=== PATIENT | female | born 1935 | race Caucasian/White ===

== ENCOUNTER 2019-04-24 | Emergency (ER) | payer MEDICARE ==
[~2019-04-24] MED LIST: MEDDOSEPAK PO; TRAMADOL HCL50 MG PO
[2019-04-24] MEDS ORDERED: AMOXICILLIN875 MG PO (12:42)
== END 2019-04-24 12:50 | disposition home or self-care (01) ==
DX: J02.0 Streptococcal pharyngitis (principal)